=== PATIENT | male | born 1940 | race Caucasian/White ===

== ENCOUNTER 2018-07-11 13:54 | Outpatient (CLI) | payer MEDICARE ==
[~2018-07-11 13:54] MED LIST: ASPI-611 PO; BETA1TAB14 PO; GLUC-99 PO; HYDR-4353 PO; MULT-342 PO; SIMV40TA PO
== END 2018-07-11 23:59 | disposition home or self-care (01) ==
LOC: RAD 13:54
PROVIDERS: ATTEND Internal Medicine Cardiovascular Disease
DX: G40.209 Localization-related (focal) (partial) symptomatic epilepsy and epileptic syndromes with complex partial seizures, not intractable, without status epilepticus (principal); I25.2 Old myocardial infarction; J45.909 Unspecified asthma, uncomplicated; K21.9 Gastro-esophageal reflux disease without esophagitis; Z88.6 Allergy status to analgesic agent
CPT/HCPCS: 95822

== ENCOUNTER 2021-05-30 10:57 | Day surgery (SDC) | payer MEDICARE ==
[~2021-05-30] VITALS: Ht 188 cm; Wt 109.0 kg
[2021-05-30] MEDS ORDERED: LIDOcaine 1% (10mg/ml) 2ml vial SQ ONE ×2 (11:05→11:35)
[2021-05-30 11:23] VITALS: BP 146/95
[2021-05-30] MEDS ORDERED: LIDOcaine 1% 30ml preserv. free vial SQ STA (11:44)
[2021-05-30 12:45] VITALS: BP 145/95
[2021-05-30 12:50] VITALS: BP 133/99
[2021-05-30 12:55] VITALS: BP 136/84
[2021-05-30 13:01] VITALS: BP 136/97
== END 2021-05-30 13:15 | disposition home or self-care (01) ==
LOC: SSTAY O 10:57
PROVIDERS: ATTEND Radiology Vascular & Interventional Radiology
DX: R22.32 Localized swelling, mass and lump, left upper limb (principal); Z88.5 Allergy status to narcotic agent; Z79.899 Other long term (current) drug therapy; Z79.82 Long term (current) use of aspirin; Z85.828 Personal history of other malignant neoplasm of skin
CPT/HCPCS: 20206; 76942; J3490